=== PATIENT | male | born 1975 | race Caucasian/White ===

== ENCOUNTER 2021-06-04 17:51 | Day surgery (SDC) | payer MEDICAID, SELFPAY ==
[2021-06-04 17:52] VITALS: BP 131/88; PULSE 98; RESP 18; TEMP 36.9; O2SAT 100; BMI 24.7; BMI 26.8
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
[2021-06-04 19:29] LABS: Coronavirus 19, PCR Not Detected (NotDetected); Influenza A, PCR Not Detected (NotDetected); Influenza B, PCR Not Detected (NotDetected)
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
[2021-06-04 19:52] LABS: Basophils # 0.1 K/mm3 (0-0.2); Basophils % 0.6 % (0.1-2.0); Eosinophils # 0.2 K/mm3 (0.0-0.4); Eosinophils % 2.5 % (0.1-12.0); Hematocrit 45.4 % (42.0-52.0); Hemoglobin 15.2 g/dL (14.1-18.0); Lymphocytes # 2.1 K/mm3 (0.7-4.5); Lymphocytes % 26.6 % (10-50); Mean Corpuscular HGB Conc 33.6 g/dL (31.8-35.4); Mean Corpuscular Hemoglobin 30.5 pg (27.0-31.2); Mean Platelet Volume 8.1 fl (7.4-10.4); Monocytes # 0.3 K/mm3 (0.1-1.0); Monocytes % 4.4 % (1.7-9.3); Neutrophils # 5.1 K/mm3 (1.8-7.8); Neutrophils % 65.8 % (37.0-80.0); Platelet Count 212 K/mm3 (142-424); Red Blood Count 4.99 M/mm3 (4.60-6.20); Red Cell Distribution Width 14.1 % (11.5-17.5); White Blood Count 7.8 K/mm3 (4.8-10.8)
[2021-06-04 20:05] LABS: Alanine Aminotransferase 25 U/L (12-78); Albumin Level 4.6 g/dl (3.5-5.0); Albumin/Globulin Ratio 1.6 (1.1-1.8); Alkaline Phosphatase 79 U/L (38-126); Anion Gap 13.8 mEq/L (5-15); Aspartate Amino Transferase 32 U/L (17-59); Bilirubin,Total 0.3 mg/dl (0.2-1.3); Blood Urea Nitrogen 15 mg/dl (9-20); Calcium 9.3 mg/dl (8.4-10.2); Carbon Dioxide 24 mmol/L (22.0-30.0); Chloride 106 mmol/L (98-107); Creatinine Clearance Estimated 132 mL/min (50-200); Estimated Glomerular Filt Rate 91 ml/min (>60); GFR (African American) 110 ML/MIN (>60); Globulin 2.9 g/dL (1.3-3.2); Glucose 94 mg/dl (74-100); Potassium 3.8 mmoL/L (3.5-5.1); Sodium 140 mmol/L (136-145); Total Protein,Serum 7.5 g/dl (6.3-8.2)
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
[2021-06-04 20:13] VITALS: BP 139/82; PULSE 89; RESP 18; TEMP 36.9; O2SAT 100
[2021-06-04 21:30] VITALS: BP 125/70; PULSE 62; RESP 16; TEMP 36.2; O2SAT 100
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
[2021-06-04 21:35] VITALS: BP 140/75; PULSE 60; RESP 18; TEMP 36.2; O2SAT 97
--- NOTE | 2021-06-04 21:35 | HMH.ANESI ---
[facility] Anesthesia Record Part I Intake, IV Amount: 900 Estimated blood loss (mL): 10 Urine output (mL): 0 Blood Products used (#): none Blood Pressure: 140/75 SaO2: 97 Pulse Rate: 60 Respiratory Rate: 18 Temperature: 97.1 F Patient is:: Drowsy, Stable Stable to PACU at:: 21:30
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
[2021-06-04 21:45] VITALS: BP 134/70; PULSE 74; RESP 16; TEMP 36.2; O2SAT 100
[2021-06-04 21:57] VITALS: BP 125/82; PULSE 62; RESP 16; TEMP 36.2; O2SAT 100
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
== END 2021-06-04 22:25 | disposition home or self-care (01) ==
LOC: ER 19:20 → SDC 20:52
PROVIDERS: Emergency Provider Family Medicine; PCP Family Medicine; Visit Provider Podiatrist
PROC: (CPT 11044; principal; 2021-06-04 20:00)
DX: S92.422B Displaced fracture of distal phalanx of left great toe, initial encounter for open fracture (principal); S92.412B Displaced fracture of proximal phalanx of left great toe, initial encounter for open fracture; W32.0XXA Accidental handgun discharge, initial encounter; Z20.822 Contact with and (suspected) exposure to COVID-19; F17.210 Nicotine dependence, cigarettes, uncomplicated
CPT/HCPCS: 11044; 73620; 73660; 76000; 80053; 85025; 96374; 99284; C9803; J2405; J3370; U0003; U0005

== ENCOUNTER → 2021-07-15 12:44 | Outpatient (CLI) | payer MEDICAID, SELFPAY ==
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
[2021-07-15 13:49] LABS: Basophils # 0.1 K/mm3 (0-0.2); Basophils % 0.7 % (0.1-2.0); Eosinophils # 0.2 K/mm3 (0.0-0.4); Eosinophils % 2.3 % (0.1-12.0); Hematocrit 47.5 % (42.0-52.0); Hemoglobin 15.5 g/dL (14.1-18.0); Lymphocytes # 2.1 K/mm3 (0.7-4.5); Lymphocytes % 26.6 % (10-50); Mean Corpuscular HGB Conc 32.6 g/dL (31.8-35.4); Mean Corpuscular Hemoglobin 30.4 pg (27.0-31.2); Mean Corpuscular Volume 93.5 fl (80-94); Mean Platelet Volume 8.9 fl (7.4-10.4); Monocytes # 0.4 K/mm3 (0.1-1.0); Monocytes % 5.1 % (1.7-9.3); Neutrophils # 5.1 K/mm3 (1.8-7.8); Neutrophils % 65.3 % (37.0-80.0); Platelet Count 277 K/mm3 (142-424); Red Blood Count 5.08 M/mm3 (4.60-6.20); Red Cell Distribution Width 14.7 % (11.5-17.5); White Blood Count 7.8 K/mm3 (4.8-10.8)
[2021-07-15 14:20] LABS: Erythrocyte Sedimentation Rate 4 mm/hr (0-15)
[2021-07-15 15:01] LABS: Alanine Aminotransferase 19 U/L (12-78); Albumin Level 4.6 g/dl (3.5-5.0); Albumin/Globulin Ratio 1.5 (1.1-1.8); Alkaline Phosphatase 69 U/L (38-126); Anion Gap 12.2 mEq/L (5-15); Aspartate Amino Transferase 26 U/L (17-59); Bilirubin,Total 0.4 mg/dl (0.2-1.3); Blood Urea Nitrogen 11 mg/dl (9-20); Calcium 9.9 mg/dl (8.4-10.2); Carbon Dioxide 28 mmol/L (22.0-30.0); Chloride 105 mmol/L (98-107); Estimated Glomerular Filt Rate 91 ml/min (>60); GFR (African American) 110 ML/MIN (>60); Glucose 93 mg/dl (74-100); Potassium 4.2 mmoL/L (3.5-5.1); Sodium 141 mmol/L (136-145); Total Protein,Serum 7.6 g/dl (6.3-8.2); Uric Acid 4.8 mg/dl (3.5-8.5)
[2021-07-15 15:08] LABS: C-Reactive Protein 0.7 mg/L (0-4)
== END ==
PROVIDERS: PCP Student in an Organized Health Care Education/Training Program; Visit Provider Podiatrist
DX: Z98.890 Other specified postprocedural states (principal); S91.332D Puncture wound without foreign body, left foot, subsequent encounter; L03.032 Cellulitis of left toe
CPT/HCPCS: 36415; 73630; 80053; 84550; 85025; 85651; 86140

== ENCOUNTER → 2021-08-30 15:35 | Outpatient (CLI) | payer MEDICAID, SELFPAY | PROVIDERS: Visit Provider Nurse Practitioner | DX: Z20.822 Contact with and (suspected) exposure to COVID-19 (principal) | CPT/HCPCS: C9803; U0003; U0005 ==

== ENCOUNTER 2024-03-17 05:02 | Emergency (ER) | payer MEDICAID, SELFPAY ==
[2024-03-17] VITALS (11 sets, daily range): BP systolic 104–131; BP diastolic 64–83; PULSE 66–90; RESP 10–20; TEMP 36.6–36.7; O2SAT 92–99; BMI 23.2; BMI 23.1
--- NOTE | 2024-03-17 05:18 | ECG_ITS ---
APPROVED REPORT Exam: Resting ECG HR:83 bpm ECG Measurements Heart Rate 83 AXES OR 154 P 89 QRSd 106 QRS 59 QT 379 T 71 QTc 419 Conclusion SINUS RHYTHM NORMAL ECG Electronically signed by : SCOTT MANLEY, 03/17/2024 05:59:58
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
--- NOTE | 2024-03-17 05:22 | PC.NURSE ---
marge hitchcock RN gave pt's wallet to brother per patient request.
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
[2024-03-17] MEDS: ONDANSETRON 4MG/2ML VIAL 4 MG IV (05:26)
[2024-03-17] MEDS: FENTANYL 250MCG/5ML VIAL 50 MCG IV (05:26)
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
[2024-03-17 05:30] LABS: Chloride 104 mmol/L (98-107); Sodium 142 mmol/L (136-145)
[2024-03-17 05:31] LABS: Potassium 3.3 mmoL/L (3.5-5.1)
[2024-03-17 05:33] LABS: Alanine Aminotransferase 51 U/L (12-78); Albumin Level 4.5 g/dl (3.5-5.0); Albumin/Globulin Ratio 1.6 (1.1-1.8); Alkaline Phosphatase 57 U/L (38-126); Anion Gap 10.3 mEq/L (5-15); Aspartate Amino Transferase 48 U/L (17-59); Bilirubin,Total 0.4 mg/dl (0.2-1.3); Blood Urea Nitrogen 9 mg/dl (9-20); Carbon Dioxide 31 mmol/L (22.0-30.0); Creatinine Clearance Estimated 121 mL/min (50-200); Estimated Glomerular Filt Rate 90 ml/min (>60); GFR (African American) 109 ML/MIN (>60); Globulin 2.8 g/dL (1.3-3.2); Total Protein,Serum 7.3 g/dl (6.3-8.2)
[2024-03-17 05:34] LABS: Calcium 9.5 mg/dl (8.4-10.2); Glucose 109 mg/dl (74-100)
[2024-03-17 05:35] LABS: Activated Partial Thrombo Time 25.4 seconds (22.8-30.6); INR 0.96 (0.9-1.1); Prothrombin Time 10.4 seconds (10.1-12.5)
--- NOTE | 2024-03-17 05:35 | PC.NURSE ---
patient refusing to go to scans.
[2024-03-17 05:36] LABS: Ethyl Alcohol < 10 mg/dl (0-10)
[2024-03-17] MEDS: LACTATED RINGERS 1000ML 1,000 ML 999 ML IV (05:38)
[2024-03-17 05:39] LABS: Basophils # 0.1 K/mm3 (0-0.2); Basophils % 0.9 % (0.1-2.0); Eosinophils # 0.3 K/mm3 (0.0-0.4); Eosinophils % 2.4 % (0.1-12.0); Hematocrit 43.4 % (42.0-52.0); Hemoglobin 14.5 g/dL (14.1-18.0); Lymphocytes # 2.5 K/mm3 (0.7-4.5); Lymphocytes % 20.1 % (10-50); Mean Corpuscular HGB Conc 33.4 g/dL (31.8-35.4); Mean Corpuscular Volume 92.7 fl (80-94); Monocytes # 0.7 K/mm3 (0.1-1.0); Monocytes % 5.2 % (1.7-9.3); Neutrophils % 71.5 % (37.0-80.0); Platelet Count 255 K/mm3 (142-424); Red Blood Count 4.69 M/mm3 (4.60-6.20); Red Cell Distribution Width 14.3 % (11.5-17.5); White Blood Count 12.6 K/mm3 (4.8-10.8)
[2024-03-17] MEDS: LIDOCAINE 2% W/EPI 1:100,000 20ML VIAL 20 ML IJ (05:41)
[2024-03-17] MEDS: FENTANYL 250MCG/5ML VIAL 75 MCG IV (05:47)
[2024-03-17 05:51] LABS: Troponin I < 0.01 ng/ml (0.00-0.034)
--- NOTE | 2024-03-17 05:51 | PC.NURSE ---
pt reports he is ready for CT scan now. Maco in rad notified.
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
[2024-03-17] MEDS: droPERidol 5MG/2ML VIAL 2.5 MG IV (06:32)
[2024-03-17] MEDS: SODIUM CHLORIDE 0.9% 10ML SYR (RAD ONLY) 10 ML IV (06:41)
[2024-03-17] MEDS: 0.9 % SODIUM CHLORIDE 50 ML VIAL IV (06:41)
[2024-03-17] MEDS: IOPAMIDOL-370 (76%);100ML BOTTLE 100 ML IV (06:42)
--- NOTE | 2024-03-17 07:08 | PC.NURSE ---
spoke to transfer center on regards to a transfer
[2024-03-17] MEDS: CEFAZOLIN SODIUM 2 GM in 0.9 % SODIUM CHLORIDE 100 ML IV (07:56)
[2024-03-17] MEDS: TET/DIPHTH/PERT-ADULT 0.5ML SYRINGE 0.5 ML IM (07:56)
--- NOTE | 2024-03-17 08:00 | PC.NURSE ---
report called to kareen mora at [facility].
== END 2024-03-17 08:54 | disposition short-term general hospital (02) ==
PROVIDERS: Emergency Provider Emergency Medicine
DX: S00.83XA Contusion of other part of head, initial encounter (principal); S81.002A Unspecified open wound, left knee, initial encounter; S81.011A Laceration without foreign body, right knee, initial encounter; F17.210 Nicotine dependence, cigarettes, uncomplicated; V48.5XXA Car driver injured in noncollision transport accident in traffic accident, initial encounter; Z23 Encounter for immunization; Y92.410 Unspecified street and highway as the place of occurrence of the external cause
CPT/HCPCS: 70450; 71045; 71275; 72125; 72170; 73560; 73700; 74174; 80053; 80320; 84484; 85025; 85610; 85730; 90471; 90715; 93005; 96361; 96365; 96375; 99285; G0480; J0690; J1790; J2405; J3010; J7120; Q9967